=== PATIENT | male | born 1990 | race Hispanic/Latino ===

== ENCOUNTER 2018-04-14 12:33 | Emergency (ER) | payer SELFPAY ==
[~2018-04-14] VITALS: Ht 188 cm; Wt 140.6 kg
[2018-04-14] MEDS ORDERED: KETOROLAC TROMETHAMINE 30 MG/ML VIAL IM STA (12:55)
--- NOTE | 2018-04-14 13:55 | Diagnostic Imaging Report ---
EXAMINATION: CT of the abdomen and pelvis without contrast. TECHNIQUE: Spiral CT images of the abdomen and pelvis were performed from the lung bases to the lesser trochanters. No intravenous contrast was given per renal stone protocol. Coronal and sagittal reformatted images were obtained. COMPARISON: None. CLINICAL HISTORY:Left flank pain since 3 hours ago, nausea, back pain DISCUSSION: ABSENCE OF INTRAVENOUS CONTRAST DECREASES SENSITIVITY FOR DETECTION OF FOCAL LESIONS AND VASCULAR PATHOLOGY. ABDOMEN/PELVIS: LOWER THORAX: Unremarkable. HEPATOBILIARY: No focal hepatic lesions. No intra or extrahepatic biliary ductal dilation. GALLBLADDER: No radio-opaque stones or sludge. No wall thickening. SPLEEN: No splenomegaly. PANCREAS: No focal masses or ductal dilatation. ADRENALS: No adrenal nodules. KIDNEYS/URETERS: 2-3 mm radiopaque calculus located in the left distal UVJ/bladder lumen (series 3, image 170 and sagittal image 86). No hydronephrosis or hydroureter. Mild left caliectasis. No significant perinephric or periureteral stranding. No other left or any right renal or ureteral calculi. No right hydronephrosis. No renal contour abnormalities. PELVIC ORGANS/BLADDER: Bladder is mostly decompressed, however shows no focal lesion or wall thickening. PERITONEUM/RETROPERITONEUM: No free air or fluid. LYMPH NODES: No intra-abdominal,retroperitoneal, pelvic or inguinal lymphadenopathy. VESSELS: Unremarkable for noncontrast exam. GI TRACT: No bowel dilation or evidence of obstruction. Appendix is well identified and normal in caliber. BONES AND SOFT TISSUES: No aggressive lytic lesions. Soft tissues are grossly unremarkable. IMPRESSION: 1. 2-3 mm radiopaque stone located in the left distal UVJ/bladder lumen, consistent with an almost passed stone. No left hydronephrosis or hydroureter. Mild left caliectasis. 2. No other left or any right renal or ureteral calculi, right hydronephrosis or obstruction. Signed by: Dr. Dragan Joy M.D. on 04/14/2018 1:51 PM
[2018-04-14 14:11] LABS: CLARITY,URINE SL CLOUDY (CLEAR); COLOR,URINE YELLOW (YELLOW)
[2018-04-14 14:12] LABS: BILIRUBIN,URINE NEGATIVE (NEGATIVE); KETONES,URINE NEGATIVE (NEGATIVE); LEUKOCYTE ESTERASE ,URINE NEGATIVE (NEGATIVE); NITRITE,URINE NEGATIVE (NEGATIVE); PROTEIN,URINE DIPSTICK 1+ (NEGATIVE); URINE UROBILINOGEN 0.2 mg/dL (0.2 - 1)
[2018-04-14 14:20] LABS: BACTERIA,URINE FEW /HPF; EPITHELIAL CELLS,URINE RARE /LPF; RBC,URINE >50 /HPF (0-5); WBC,URINE (MAN) 0-5 /HPF (0-5)
[2018-04-14 14:21] LABS: CALCIUM OXALATE CRYSTALS,UR MODERATE (FEW); MUCUS,URINE MANY (RARE)
[2018-04-14 15:23] VITALS: BP 142/89
== END 2018-04-14 15:32 | disposition home or self-care (01) ==
LOC: ER 12:33
DX: R10.32 Left lower quadrant pain (principal); R11.2 Nausea with vomiting, unspecified; N20.1 Calculus of ureter
CPT/HCPCS: 74176; 81001; 96372; 99284; J1885